=== PATIENT | female | born 2000 | race Caucasian/White ===

== ENCOUNTER 2024-03-22 10:51 | Outpatient (AMB) | payer OTHER, SELFPAY ==
--- NOTE | 2024-03-22 10:56 | A.OFFPC_ITS ---
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 Intake Note: new patient to establish care Allergies No Known Allergies Allergy (Verified 03/22/24 11:02) Medication List - Last Reconciled 03/22/24 by CARLOS GardnerP- escitalopram oxalate (Lexapro) 10 mg PO DAILY escitalopram oxalate (Lexapro) 5 mg PO DAILY Tobacco use date assessed: 03/22/24 Dental Screening Dental Screen Date: 03/22/24 Did you have a dental visit in the last 12 months?: Yes Did you have a dental problem in the last 6 months where you did not have access to dental care?: No Was dental information given to patient?: Patient has dentist HPI HPI Comments History of Present Illness Details 23 y/o F with Vegan, Generalized anxiety disorder, MDD, seasonal allergies, obesity Social: works as [employer], living home w/ Mom Surgical hx: wisdom teeth extraction Family hx: Dad substance abuse, copd, emphyshema; Mom alive and well. Siblings 2 brothers, 1 sister alive and well. All grandparents . Maternal Grandmother CAD, Grandfather dementia , Paternal Grandfather Alzehimers Health Maintenance: Tdap 06/03/22 , will get flu shot at pharmacy Pap UTD [facility] Dermatology cleared hr assistant unsure of provider - appt 04/2024 Psychiatrist & counselor Here today to est care & for a CPE peds records reviewed overall feels well worried about wt; + lifestyle changes w/o decrease in wt. Cont to eat vegan diet. Mood is ok on current meds; managed by outside provider Optho - no corrective lenses; no need for eye exam Skin - acne cleared, no longer ff'd by Derm Plan: Check routine screening labs today. If normal, advised to cont to make healthy lifestyle choices. Do not focus on scale. + self talk Cont care w/ care team Recommend MVI with B12 RTO 1 year CPE, sooner PRN Labs from today show a normal CBC, normal electrolytes, normal renal function, A1c 5.0%, AST 36, ALT 38, lipid profile within normal limits, B12 low end of normal at 205, TSH normal, urine microalbumin creatinine ratio normal [facility] Medical History (Updated 03/22/24 @ 11:[address] [facility] [place]) Anxiety and depression Surgical History (Updated 03/22/24 @ 11:08 by Zoë Wang MA) No pertinent past surgical history Family History (Updated 03/22/24 @ 11:09 by Zoë Wang MA) Maternal Grandfather Mental health disorder Psychiatric disorder Father Substance abuse Maternal Grandmother Cardiovascular disease Paternal Grandfather Alcoholism Social History (Updated 03/22/24 @ 11:04 by Zoë Wang MA) Household Members: Family Housing: House Are you a primary respiratory care technician to a significant other at home: No Do you presently have visiting nurse or other home services: No Alcohol intake: current Alcohol intake frequency: a few times a month Patient Tobacco Use Status: Never used Tobacco e-Cigarette/Vaping Use: Never Used Substance Use Type: Marijuana service: No Current occupational status: employed Current occupation: Cognitive needs: No Hearing needs: No Vision needs: No Questionnaire PHQ-9 Over the last 2 weeks, how often have you been bothered by any of the following problems? 1. Little interest or pleasure in doing things: not at all 2. Feeling down, depressed, or hopeless: not at all 3. Trouble falling or staying asleep, or sleeping too much: several days 4. Feeling tired or having little energy: not at all 5. Poor appetite or overeating: not at all 6. Feeling bad about yourself - or that you are a failure or have let yourself or your family down: several days 7. Trouble concentrating on things, such as reading the newspaper or watching television: not at all 8. Moving or speaking so slowly that other people could have noticed. Or the opposite - being so fidgety or restless that you have been moving around a lot more than usual: not at all 9. Thoughts that you would be better off or of hurting yourself in some way: not at all Total score: 2 Depression Screening Interpretation: Negative Depression Screening Done: Yes 37625 - PHQ-9 Billing: Yes Source: Developed by Drs. Boo Cruz, Mayra BTyron Hollingsworth and colleagues, with an educational wang from [employer]. Thrive Questionnaire Date Thrive assessed: 03/22/24 I am a: Patient What is your living situation today?: I have a steady place to live Within the past 12 months, did the food you bought not last and you didn't have the money to get more?: Never true Within the past 12 months, did you worry whether your food would run out before you got money to buy more?: Never true Do you have trouble paying for medicines?: No Do you have trouble getting transportation to medical appointments?: No Do you have trouble paying your heating and electricity bill?: No Do you have trouble taking care of your child, family member or friend?: No Do you have trouble with day-to-day activities such as bathing, preparing meals, shopping, managing finances, etc.?: No Are you currently unemployed and looking for a job?: No Are you interested in more education?: No Please select the resources that you would like help with: None Currently or been in a relationship where the following occur: No concerns reported THRIVE Score: 0 AUDIT C Alcohol Use Questionnaire (AUDIT-C) 1. How often do you have a drink containing alcohol?: 2-4 times a month 2. How many drinks containing alcohol do you have on a typical day when you are drinking?: 1 or 2 3. How often do you have six or more drinks on one occasion?: Less than monthly Total Score: 3 Score Reviewed/Action Taken: Yes WANDA-7 AMB Questionnaire WANDA-7 Date WANDA - 7 assessed: 03/22/24 Feeling nervous, anxious, or on edge: 3 = Nearly every day Not being able to stop or control worryin = More than half the days Worrying too much about different things: 2 = More than half the days Trouble relaxin = More than half the days Being so restless that it is hard to sit still: 2 = More than half the days Becoming easily annoyed or irritable: 0 = Not at all Feeling afraid as if something awful might happen: 3 = Nearly every day Total WANDA-7 score (0-4 normal; 5-9 mild; 10-14 moderate; 15-21 severe): 14 Source: Developed by Drs. Boo Cruz, MayraTyron Larson and colleagues, with an educational wang from [employer]. WANDA-7 Assessment Billing WANDA-7 Assessment Tool: WANDA-7 Assessment 56992 Review of Systems Const Details: Constitutional: Denies fever. Skin: Denies rash. Eye: Denies eye pain. ENMT: Denies sore throat and nasal congestion. Respiratory: Denies shortness of breath and cough. Gastrointestinal: Denies nausea, vomiting or abdominal pain. Cardiovascular: Denies chest pain and syncope. Genitourinary: Denies dysuria. Musculoskeletal: Denies back pain and extremity pain. Neurologic: Denies headaches, confusion, and weakness. Psychiatric: Denies suicidal thoughts and substance abuse. Allergy/ Immunologic: Denies impaired immunity. Physical exam (Primary Care) Vital Signs: Last Vital Signs Pulse 82 03/22/24 11:00 Resp 13 03/22/24 11:00 BP 124/70 03/22/24 11:00 Pulse Ox 97 03/22/24 11:00 Oxygen Delivery Method Room Air 03/22/24 11:00 BMI result Body Mass Index 34.1 BMI Assessment/Plan discussion: High BMI High, discussed plan: lifestyle Tobacco/Smoking Status: Tobacco use Status Tobacco use date assessed 03/22/24 03/22/24 11:05 Patient Tobacco Use Status Never used Tobacco 03/22/24 11:05 e-Cigarette/Vaping Use Never Used 03/22/24 11:05 PHQ-9: PHQ-9 Score PHQ-9: Total score 2 03/22/24 11:23 Depression Screening Interpretation: Negative Thrive Assessment: Date of Thrive Assessment Date Thrive assessed 03/22/24 03/22/24 10:59 Currently or been in a relationship where the following occur: No concerns reported Const Other: General: Well developed, well nourished, in no acute distress. Appears stated age. Head: Normocephalic, atraumatic. Eyes: Pupils are equal, round and reactive to light and accommodation. Conjunctivae are clear. Vision grossly normal. Ears: TMs clear AU, EACS WNL Nose: Patent, without discharge. Mouth: There are no ulcers or lesions noted. No inflammation, no post nasal drip, no plaques nor exudates. Neck: Supple, no adenopathy or thyromegaly. Lungs: Clear to auscultation bilaterally. No rales, rhonchi or wheeze noted. Good air flow in all oliver. Heart: Regular rate and rhythm. No murmurs, click, rubs or gallops are noted. Abdomen: Bowel sounds present in all quadrants. The abdomen is soft, nontender, with no masses or organomegaly noted. No hernias are noted. Musculoskeletal: Joints are nontender, without swelling, redness, or effusions. Range of motion is observed to be normal. Pulses: Peripheral pulses are equal and palpable bilaterally. Extremities: No clubbing, cyanosis nor edema is noted. Neurologic: Gait and station normal. Cranial Nerves 2-12 intact. Motor strength grossly symmetrical and intact. No sensory loss. Balance normal. Skin: No rashes, ulcers, or lesions noted. Turgor is good. Skin color is good. Hair and nails are without abnormalities. Psych: Normal eye contact, affect and mood appropriate, and normal interactions. Patient is alert and appropriate to context. Coding Level of Care Code New Pt Prev Care 18-39yr(84019 Diagnoses Encounter for general adult medical examination without abnormal findings Z00.00 Vegan diet Z78.9 WANDA (generalized anxiety disorder) F41.1 BMI 34.0-34.9,adult Z68.34 Obesity, Class I, BMI 30-34.9 E66.811 Seasonal allergies J30.2 Mild episode of recurrent major depressive disorder F33.0 Major depression episode severity: mild Laboratory exam ordered as part of routine general medical examination Z00.00 Additional Codes WANDA-7 Assessment Billing - WANDA-7 Assessment Tool: WANDA-7 Assessment 06918 ([id number]) Assessment & Plan Assessment & Plan (1) Encounter for general adult medical examination without abnormal findings: Code(s): Z00.00 - Encounter for general adult medical examination without abnormal findings Plan: . (2) Vegan diet: Code(s): Z78.9 - Other specified health status Category: Medical Plan: . (3) WANDA (generalized anxiety disorder): Code(s): F41.1 - Generalized anxiety disorder Category: Medical Plan: . (4) BMI 34.0-34.9,adult: Code(s): Z68.34 - Body mass index [BMI] 34.0-34.9, adult Category: Medical Plan: . (5) Obesity, Class I, BMI 30-34.9: Code(s): E66.811 - Obesity, class 1 Category: Medical Plan: . (6) Seasonal allergies: Code(s): J30.2 - Other seasonal allergic rhinitis Category: Medical Plan: . (7) MDD (major depressive disorder), recurrent episode: Code(s): F33.9 - Major depressive disorder, recurrent, unspecified Category: Medical Qualifiers: Major depression episode severity: mild Qualified Code(s): F33.0 - Major depressive disorder, recurrent, mild Plan: . (8) Laboratory exam ordered as part of routine general medical examination: Code(s): Z00.00 - Encounter for general adult medical examination without abnormal findings Category: Medical Plan: . Orders: Orders Comprehensive Met. Panel Today Z00.00 - Encounter for general adult medical examination without abnormal findings, Z78.9 - Other specified health status Microalbumin, Random (w Creat) Today Z00.00 - Encounter for general adult medical examination without abnormal findings, Z78.9 - Other specified health status Vitamin B12 and Folate Today Z00.00 - Encounter for general adult medical examination without abnormal findings, Z78.9 - Other specified health status Lipid Panel Today Z00.00 - Encounter for general adult medical examination wit hout abnormal findings, Z78.9 - Other specified health status Hemoglobin A1c Today Z00.00 - Encounter for general adult medical examination without abnormal findings, Z78.9 - Other specified health status TSH reflex Free T4 Today Z00.00 - Encounter for general adult medical examination without abnormal findings, Z78.9 - Other specified health status Complete Blood Count no Diff Today Z00.00 - Encounter for general adult medical examination without abnormal findings, Z78.9 - Other specified health status Patient Instructions: Walk-In Care (Urgent Care): We [facility] Walk-in for urgent medical issues such as: ? Seasonal Allergies ? Insect Bites ? Cough ? Diarrhea ? Acute Asthma Attacks ? Back, Knee or Joint Pain ? Ear Infection ? Fever without a Rash ? Headaches ? Nausea ? [place] [facility], Rash or Skin Irritation ? Sore Throat ? Sports Physicals ? Vomiting Most insurances are accepted. Patients do not need to be part of the [facility] to seek care at the walk-in clinic. Locations [facility] [place] [address] [place] [address] ? [phone] [facility] Walk-In Care in [place] provides services to ages 18 and over. Open Wednesday-Wednesday: 8 a.m. to 5 p.m. and Wednesday: 9 a.m. to 3 p.m.* *Hours may vary due to staffing availability. To confirm Walk-In Care hours in [place], please call [phone]. [address] [place] [address] ? [phone] [facility] Walk-In Care in [place] provides services to ages 12 and over. Open Wednesday-Wednesday: 8 a.m. to 5 p.m. Hours may vary due to staffing availability. To confirm Walk-In Care hours in [place], please call [phone]. LABORATORY SERVICES: [facility] Lab ? Primary Location [address] [place] [address] Wednesday through Wednesday 6:00 AM ? 5:00 PM Wednesday 7:00 AM ? 11:00 AM* [phone] The [facility] Lab is centrally located near the front entrance of the [facility] for easy outpatient access. Convenient parking is provided for outpatients. *Hours may vary due to staffing availability. To confirm Laboratory hours for any location, please call [phone]. Offsite Location For your convenience, we offer offsite laboratory draw stations at the following locations: [address] [place] [address] ? [address], [address] Wednesday through Wednesday 7:30 AM ? 1:00 PM* [phone] *Hours may vary due to staffing availability. To confirm Laboratory hours for any location, please call [phone]. [place] ? [address] Wednesday through Wednesday 6:00 AM ? 3:30 PM* Wednesday 6:30 AM ? 3 PM* [phone] *Hours may vary due to staffing availability. To confirm Laboratory hours for any location, please call [phone] [place] [address] Wednesday through Wednesday 7:30 AM ? 4:00 PM* [phone] *Hours may vary due to staffing availability. To confirm Laboratory hours for any location, please call [phone] [place] [address] Wednesday through 9:00 AM ? 4:00 PM* *Hours may vary due to staffing availability. To confirm Laboratory hours for any location, please call [phone]. Appointments are not necessary. Walk-ins are welcome. Like all the departments throughout the [facility], our Lab undergoes anisha quent reviews to ensure the quality and accuracy of test results, and our staff takes special pride in its status as a nationally accredited facility. Patient Portal: ONE PATIENT. ONE RECORD. BETTER CARE. [facility] has a fully integrated, cutting- edge mobile electronic health information system that has revolutionized the way we care for our patients and manage our organization. This system improves communication and coordination enabling us to provide safe, higher-quality care, and an overall positive experience for staff and patients. Our first priority, as always, is to deliver the highest quality care possible. The system is running in the background supporting that priority. This portal is for all [facility] services and practices. If you are experiencing any technical difficulties with enrolling or logging into the Patient Portal please complete the [facility] Patient Portal Technical Support Form. [facility] now offers a new secure on-line interactive tool for patients to review their health information ? Patient Portal. This interactive web portal will enable patients and their families to take an active role in their care by providing easy, secure access to their health information via the internet. The Patient Portal provides patients with instant access to their health information, including laboratory results, medications, allergies, demographic information, visit history, and more. In addition to managing their own care, parents and health care proxies with authorized consent will appreciate the ability to access the records of those individuals for whom they provide care. Please note: if you wish to gain access (Proxy) to another patient?s portal, you will be required to come to the Medical Records Department in person at [facility]. Both the patient giving proxy access and the proxy will need to provide photo identification and complete the appropriate authorization. The Patient Portal also allows track their appointments online. The [facility] Patient Portal also saves patients time by allowing them to submit updates to their demographic and contact information prior to their visits. Portal email notifications will also alert patients to any new activity on their portal, such as test results and new appointments. In order to initially enroll in the [facility] Patient Portal, you will need to enter some required information including the following: ? your [facility] Medical Record number ? your personal home email address ? name ? date of Please note: In order to enroll in the [facility] Patient Portal, we need to have your email address on file in your electronic medical record. The email address needs to be specific for one person (yourself) in order for your Portal enrollment to be successful. You can update your email address in person with our Registration staff when you are registering for a hospital visit. Otherwise, you will need to come to the Health Information Management (Medical Records) Department at [facility]. We are open from Wednesday ? Wednesday from 7:30 a.m. ? 4:30 p.m. You will be required to present a photo id. Once you have successfully enrolled in the Patient Portal, you will receive a one-time user id and password for the Portal, sent to your email address. This will allow you to log into the Patient Portal within 99 hrs and reset your own logon id and password, and define personal security questions. Once your permanent login and password have been set, you can log into the [facility] Patient Portal at any time via the blue button above or from the Portal Logon button on any page of the [facility] website. [facility] encourage all of our patients to enroll in Patient Portal as it presents a valuable opportunity for patients and their families to actively participate in their care and stay healthy Welcome to [facility]. We look forward to working with you. Health screenings for women You should visit your health care provider from time to time, even if you are healthy. The purpose of these visits is to: Screen for medical issues Assess your risk for future medical problems Encourage a healthy lifestyle Update vaccinations and other preventive care services Help you get to know your provider in case of an illness Information Even if you feel fine, you should still see your provider for regular checkups. These visits can help you avoid problems in the future. For example, the only way to find out if you have high blood pressure is to have it checked regularly. High blood sugar and high cholesterol levels also may not have any symptoms in the early stages. A simple blood test can check for these conditions. There are specific times when you should see your provider or receive specific health screenings. The [place] Preventive Services Task Force publishes a list of recommended screenings. Below are screening guidelines for women ages 18 to 39. BLOOD PRESSURE SCREENING Your blood pressure should be checked at least once every 3 to 5 years if: Your blood pressure is in the normal range (top number less than 120 mm Hg and bottom number less than 80 mm Hg) You don't have risk factors for high blood pressure Ask your provider if you need your blood pressure checked more often if: The top number is 120 to 129 mm Hg or the bottom number is 70 to 79 mm Hg You have diabetes, heart disease, kidney problems, are overweight, or have certain other health conditions You have a first-degree relative with high blood pressure You are Black You had high blood pressure during a If the top number is 130 mm Hg or greater or the bottom number is 80 mm Hg or greater, this is considered stage 1 hypertension. Schedule an appointment with your provider to learn how you can reduce your blood pressure. Watch for blood pressure screenings in your area. Ask your provider if you can stop in to have your blood pressure checked. BREAST CANCER SCREENING Experts do not agree about the benefits of breast self-exams in finding breast cancer or saving lives. Talk to your provider about what is best for you. A screening mammogram is not recommended for most women under age 40. Your provider may discuss and recommend mammograms, MRI scans, or ultrasounds if you have an increased risk for breast cancer, such as: A mother or sister who had breast cancer at a young age (most often starting screening earlier than the age the close relative was diagnosed) You carry a high-risk genetic marker CERVICAL CANCER SCREENING Cervical cancer screening should start at age 21 years unless your provider advises otherwise. After the first test: Women ages 21 through 29 should have a Pap test every 3 years. Exoprts do not agree on whether HPV testing is recommended for this age group. Women ages 30 through 65 should be screened with either a Pap test every 3 years or the HPV test every 5 years or both tests every 5 years (called cotesting ). Women who have been treated for precancer (cervical dysplasia) should continue to have Pap tests for 20 years after treatment or until age 65, whichever is longer. If you have had your uterus and cervix removed (total hysterectomy), and you have not been diagnosed with cervical cancer or precancer (high grade cervical neoplasia), you do not need cervical cancer screening. CHOLESTEROL SCREENING Cholesterol screening should begin at: Age 45 for women with no known risk factors for coronary heart disease Age 20 for women with known risk factors for coronary heart disease Repeat cholesterol screening should take place: Every 5 years for women with normal cholesterol levels More often if changes occur in lifestyle (including weight gain and diet) More often if you have diabetes, heart disease, kidney problems, or certain other conditions DIABETES SCREENING You should be screened for diabetes starting at age 35 and then repeated every 3 years if you have no risk factors for diabetes. Screening may need to start earlier and be repeated more often if you have other risk factors for diabetes, such as: You have a first degree relative with diabetes. You are overweight or have obesity. You have high blood pressure, prediabetes, or a history of heart disease. Screening for diabetes should be done if you are planning to become and you are overweight and have other risk factors such as high blood pressure. DENTAL EXAM Go to the dentist once or twice every year for an exam and cleaning. Your dentist will evaluate if you need more frequent visits. EYE EXAM Have an eye exam every 5 to 10 years before age 40. If you have vision problems, have an eye exam every 2 years or more often if recommended by your provider. You should have an eye exam that includes an examination of your retina (back of your eye) at least every year if you have diabetes. IMMUNIZATIONS Commonly needed vaccines include: Flu shot: get one every year. COVID-19 vaccine: ask your provider what is best for you. Tetanus-diphtheria and acellular pertussis (Tdap) vaccine: have one at or after age 19 as one of your tetanus-diphtheria vaccines if you did not receive it as an adolescent. Tetanus-diphtheria: have a booster (or Tdap) every 10 years. Varicella vaccine: receive 2 doses if you never had chickenpox or the varicella vaccine. Hepatitis B vaccine: receive 2, 3, or 4 doses, depending on your exact circumstances. Measles, mumps, and rubella (MMR) vaccine: receive 1 to 2 doses if you are not already immune to MMR. Your provider can tell you if you are immune. Ask your provider about the human papillomavirus (HPV) vaccine if: You have not received the HPV vaccine in the past You have not completed the full vaccine series (you should catch up on this shot) Ask your provider if you should receive other immunizations if you have certain health problems that increase your risk for some diseases such as pneumonia. INFECTIOUS DISEASE SCREENING Women who are sexually active should be screened for chlamydia and gonorrhea up until age 25. Women 25 years and older should be screened for chlamydia and gonorrhea if at high risk. Screening for hepatitis C: All adults ages 18 to 79 should get a one-time test for hepatitis C. people should be screened at every . Screening for human immunodeficiency virus (HIV): All people ages 15 to 65 should get a one-time test for HIV. Depending on your lifestyle and medical history, you may also need to be screened for infections such as syphilis and HIV, as well as other infections. PHYSICAL EXAM All adults should visit their provider from time to time, even if they are healthy. The purpose of these visits is to: Screen for disease Assess your risk of future medical problems Encourage a healthy lifestyle Update your vaccinations and other preventive care services Maintain a relationship with a provider in case of an illness Your height, weight, and BMI should be checked at every exam. During your exam, your provider may ask you about: Depression and anxiety Diet and exercise Alcohol and tobacco use Safety issues, such as using seat belts, smoke detectors, and intimate partner violence Your medicines and risk for interactions SKIN SELF-EXAM Your provider may check your skin for signs of skin cancer, especially if you're at high risk, such as if you: Have had skin cancer before Have close relatives with skin cancer Have a weakened immune system OTHER SCREENING Talk with your provider about colon cancer screening if you have a strong family history of colon cancer or polyps, or if you have had inflammatory bowel disease or polyps yourself. Routine bone density screening of women under 40 is not recommended.
[2024-03-22 11:00] VITALS: BP 124/70; PULSE 82; RESP 13; O2SAT 97; BMI 34.1
== END 2024-03-22 11:34 | disposition home or self-care (01) ==
PROVIDERS: PCP Nurse Practitioner Family; Visit Provider Nurse Practitioner Family
DX: Z00.00 Encounter for general adult medical examination without abnormal findings (principal); Z78.9 Other specified health status; Z68.34 Body mass index [BMI] 34.0-34.9, adult; F33.0 Major depressive disorder, recurrent, mild; E66.811 Obesity, class 1; F41.1 Generalized anxiety disorder; J30.2 Other seasonal allergic rhinitis

== ENCOUNTER → 2024-03-22 10:51 | Outpatient (BNVA) | payer OTHER, SELFPAY | PROVIDERS: PCP Nurse Practitioner Family; Visit Provider Nurse Practitioner Family | DX: Z00.00 Encounter for general adult medical examination without abnormal findings (principal); F41.1 Generalized anxiety disorder; E66.811 Obesity, class 1; Z68.34 Body mass index [BMI] 34.0-34.9, adult; J30.2 Other seasonal allergic rhinitis; F33.0 Major depressive disorder, recurrent, mild; Z78.9 Other specified health status | CPT/HCPCS: 96127 ==

== ENCOUNTER 2024-03-22 11:44 | Outpatient (REF) | payer OTHER, SELFPAY ==
[2024-03-22 14:32] LABS: Hematocrit 41.6 % (37.0-47.0); Hemoglobin 14.2 g/dl (12.0-16.0); Mean Corpuscular HGB Conc 34.1 g/dl (31.0-35.0); Mean Corpuscular Volume 93.7 fL (80.0-98.0); Mean Platelet Volume 10.7 fL (9.4-12.3); Platelet Count 305 X10*3/uL (160-400); Red Blood Count 4.44 X10*6/uL (4.20-5.50); Red Cell Distribution Width 12.2 % (11.0-16.0); White Blood Count 6.6 X10*3/uL (4.8-10.8)
[2024-03-22 14:41] LABS: Estimated Average Glucose 97 mg/dL; Hemoglobin A1C 103.5315 umol/L; Total Hemoglobin (HGBA1C) 3373.4809 umol/L
[2024-03-22 14:56] LABS: Alanine Aminotransferase 38 U/L (0-31); Albumin Level 4.3 g/dL (3.5-5.0); Alkaline Phosphatase 58 U/L (39-117); Anion Gap 11 (12-20); Aspartate Amino Transferase 36 U/L (5-31); Bilirubin Total 0.6 mg/dL (0.0-1.0); Blood Urea Nitrogen 6 mg/dL (9-16); Calcium 9.9 mg/dL (8.4-10.2); Carbon Dioxide 26 mmol/L (22-29); Chloride 108 mmol/L (96-108); Cholesterol 164 mg/dL (<200); Estimated Glomerular Filt Rate > 60; Glucose Random 94 mg/dL (60-115); HDL Cholesterol 67 mg/dL (>40); LDL Cholesterol Calculated 62 mg/dL (<100); Sodium 141 mmol/L (135-145); Total Protein 7.5 g/dL (6.5-8.0); Triglycerides 175 mg/dL (<150)
[2024-03-22 15:06] LABS: Creatinine Urine 121.17 mg/dL; Microalbumin Urine < 5.0 mg/L
[2024-03-22 15:14] LABS: TSH reflex Free T4 1.05 uIU/mL (0.32-4.0)
[2024-03-22 15:21] LABS: Folate 13.9 ng/mL (> or = 4.0); Vitamin B12 205 pg/mL (200-900)
== END 2024-03-22 11:45 | disposition home or self-care (01) ==
LOC: HO.WFDLDS 11:44
PROVIDERS: Visit Provider Nurse Practitioner Family
DX: Z00.00 Encounter for general adult medical examination without abnormal findings (principal); Z13.1 Encounter for screening for diabetes mellitus; Z13.6 Encounter for screening for cardiovascular disorders; Z78.9 Other specified health status
CPT/HCPCS: 36415; 80053; 80061; 82043; 82570; 82607; 82746; 83036; 84443; 85027

== ENCOUNTER 2025-05-04 09:50 | Outpatient (AMB) | payer OTHER, SELFPAY ==
--- NOTE | 2025-05-04 09:52 | A.OFFPC_ITS ---
Vital Signs 05/04/25 10:09 Height 5 ft 4 in Weight 195 lb BMI 33.5 BP 138/78 Blood Pressure Location Lt brachial Position Sitting Respiration 12 Pulse 81 Pulse Source Pulse Oximeter Temp 97.3 F Temp Source Oral Pulse Oximetry (%) 98 Oxygen Delivery Method Room Air Intake Visit Reasons: 1 year CPE Intake Note: CPE Senior Loss Control Specialist Required: No Allergies No Known Allergies Allergy (Verified 05/04/25 10:27) Medication List - Last Reconciled 05/04/25 by SYBIL Gardner- escitalopram oxalate (Lexapro) 20 mg PO DAILY Tobacco use date assessed: 05/04/25 Dental Screening Dental Screen Date: 05/04/25 Did you have a dental visit in the last 12 months?: Yes Did you have a dental problem in the last 6 months where you did not have access to dental care?: No Was dental information given to patient?: Patient has dentist HPI HPI Comments History of Present Illness Details 24 y/o F with Vegan, Generalized anxiety disorder, MDD, seasonal allergies, obesity Social: works as [employer], living home w/ Mom Surgical hx: wisdom teeth extraction Family hx: Dad substance abuse, copd, emphyshema; Mom alive and well. Siblings 2 brothers, 1 sister alive and well. All grandparents . Maternal Grandmother CAD, Grandfather dementia , Paternal Grandfather Alzheimer Health Maintenance: Tdap 06/03/22 Pap UTD WNL Flu 05/01/25 Specialists Dermatology cleared nurses director unsure of provider - appt 04/2024, next appt 05/2025 Psychiatrist & counselor History of Present Illness The patient is a 24-year-old female presenting for a complete physical exam. Generalized Anxiety Disorder and Depression: - The patient has a history of generaliz ed anxiety disorder and depression, for which she takes escitalopram 20 mg daily. - She reports a recent increase in anxie ty, including anxiety attacks, following her decision to quit her [employer] job due to disagreements with her employer. - She reports sadness and guilt over mic ving the children in her care. - Her dose of escitalopram was increased about two months ago, but she feels it has not been effective for her anxiety. - She denies any thoughts of self-harm. - She has an appointment with her psychi atrist next week to discuss changing her medication and also regularly sees a therapist. Obesity and Weight Management: - The patient has a history of obesity w ith a BMI of 33.5. - She expresses frustration with her elmer ght, feeling that she is not seeing changes despite regular exercise such as running and biking. - She acknowledges clinical weight loss and reports significant improvement in her physical stamina, now being able to run 5.5 miles, which she could not do before. - Lab work from last year showed no thyr oid disorders. - Admits hx of disordered eating Vegan Diet and Vitamin B12 Deficiency Risk: - The patient follows a vegan diet. - Lab work from one year ago revealed a vitamin B12 level at the low end of normal at 205, where the lower limit of normal is 200. - She takes a B12 supplement but reports forgetting to take it sometimes. History of Eating Disorder: - The patient reports a past history of eating disorders. - Due to this history, she expressed derek rehension about consulting a central sterile tech, fearing it might cause her to focus excessively on food and trigger past issues. Past Medical History - Generalized anxiety disorder, on escit alopram 20 mg - Depression - Obesity (BMI 33.5) - Seasonal allergies - History of eating disorder - Low-normal Vitamin B12 level one year ago Past Surgical History - History of tooth extraction prior to 2 023 Family History - No changes in family medical history r eported. - Mother has a similar body build but is not overweight. Social History - Employment: Recently quit a [employer] ob, which has caused her significant anxiety and sadness. - She works 20 hours a week at a second [employer] job. - Housing: Lives with her mother. - Diet: Follows a vegan diet. - Exercise: Engages in regular physical activity, including running several miles a week and biking. - She reports improved stamina, recently running 5.5 miles. - Substance Use: Reports smoking pot; de nies other illicit drug use. - Sexual History: Sexually active with radha gr, denies concerns for STDs, and is not currently using any control methods. - Safety: Reports always wearing a seatb elt. Health Maintenance - The patient received her influenza vac cine today. - Instructed the patient to sign up for the patient portal to facilitate communication and access to results. - Plan to see the patient back in one ye ar for her next annual exam, or sooner if needed. Review of Systems - Constitutional: Reports frustration wi th her weight. - Psychiatric: Reports increased anxiety with anxiety attacks and feeling sad. - She denies any thoughts of self-harm. - Eyes: Denies any problems, worries, or concerns. - Gastrointestinal: Reports pooping okay . - Genitourinary: Reports peeing okay. Physical Exam General: Well developed, well nourished, in no acute distress. Appears stated age. Head: Normocephalic, atraumatic. Eyes: Pupils are equal, round and reactive to light and accommodation. Conjunctivae are clear. Scleras nonicteric bilat. Vision grossly normal. Ears: TMs clear AU, EACS WNL Nose: Patent, without discharge. Neck: No carotid bruit bilat. Supple, no adenopathy or thyromegaly. Breast: Edu on SBE Lungs: Clear to auscultation bilaterally. No rales, rhonchi or wheeze noted. Good air flow in all oliver. Heart: Regular rate and rhythm. No murmurs, click, rubs or gallops are noted. Abdomen: Bowel sounds present in all quadrants. The abdomen is soft, nontender, with no masses or organomegaly noted. No hernias are noted. : Deferred. Reviewed recommendations for routine [facility] Pulses: Peripheral pulses are equal and palpable bilaterally. Extremities: No clubbing, cyanosis nor edema is noted. Neurologic: Gait and station normal. Cranial Nerves 2-12 intact. Motor strength grossly symmetrical and intact. No sensory loss. Balance normal. Skin: No rashes, ulcers, or lesions noted. Turgor is good. Skin color is good. Hair and nails are without abnormalities. Psych: Normal eye contact, affect and mood appropriate, and normal interactions. Patient is alert and appropriate to context. Reports feeling anxious and sad due to recent job change and connection with children at previous job. Currently taking Lexapro 20 mg for anxiety and depression, with plans to change medication. No thoughts of self-harm. Results - PHQ-9: Score of 3, indicating mild dep ression. - Anxiety Screen: Score was noted to be high. - Labs from one year ago: Vitamin B12 wa s 205 (lower limit of normal is 200). - Other labs at that time were normal. Medical Decision Making The patient is a 24-year-old female who presented for a complete physical exam. Her primary concerns are worsening anxiety and frustration with weight management. The patient's anxiety, characterized by recent attacks, appears to be exacerbated by recent psychosocial stressors related to her employment. Despite an increased dose, her current regimen of escitalopram 20 mg is not providing sufficient symptom control. Her upcoming appointment with her psychiatrist is an appropriate step for medication reevaluation, and her engagement with a therapist is commendable. Regarding her weight, although she is frustrated by the number on the scale, she reports objective improvements in her cardiovascular fitness and stamina, which are important health indicators. Her vegan diet places her at risk for B12 deficiency; her level one year ago was borderline low, and she is inconsistent with supplementation. To assess for potential anemia, which can impact energy and metabolism, a repeat CBC and B12 level have been ordered. Given her history of an eating disorder, a referral will be made to a specialized eating disorder central sterile tech, as this will provide tailored support while minimizing the risk of triggering past behaviors. Health maintenance, including vaccinations, is largely up to date. Plan 1. Generalized Anxiety Disorder And Depr ession - The patient's anxiety has worsened rec ently, with associated panic attacks, despite being on escitalopram 20 mg. - She has an appointment with her psychi atrist next week to re-evaluate her medication regimen. - She will continue to engage in therapy . - Continue current medication until her psychiatry appointment. 2. Obesity And Health Maintenance - The patient expressed frustration with her weight despite regular exercise. - Acknowledged her physical improvements , such as increased running endurance, as a positive health outcome. - Due to a history of an eating disorder , recommended a consultation with a central sterile tech specializing in eating disorders to provide support without using triggering language. - Instructed the patient to contact her insurance to find a covered specialist and to provide that information via the patient portal for a formal referral. 3. Vitamin B12 Deficiency Risk - Due to her vegan diet and a borderline low B12 level a year ago, there is a risk of deficiency and subsequent anemia. - Ordered a CBC and Vitamin B12 level to be drawn today. - Results will be sent to the patient vi a the patient portal. Patient Instructions - Please go to the lab today to get your blood drawn. I have ordered a CBC (complete blood count) and a Vitamin B12 level. - You will receive an email to sign up f or our patient portal. Please click the link in the email and set up your account today, as the link will in 24 hours. The portal is where I will send your lab results and where you can send me messages. - Continue taking your medication as pre scribed and keep your appointment with your psychiatrist next week to discuss your anxiety. - Please contact your insurance company to ask for a list of covered film maker who specialize in eating disorders. Once you have that information, send it to me through the patient portal, and I will place a referral. - You received your flu shot today. - We will see you back in one year for y our next annual physical. If anything changes or you need help before then, please message me on the portal. Consent The patient verbally consented to have her blood drawn for lab testing after the risks, benefits, and alternatives were discussed. Patient was informed and verbally consented to the use of an ambient scribe for clinic note documentation during this visit. [facility] Medical History Anxiety and depression Surgical History No pertinent past surgical history Family History Maternal Grandfather Mental health disorder Psychiatric disorder Father Substance abuse Maternal Grandmother Cardiovascular disease Paternal Grandfather Alcoholism Social History Household Members: Family Both parents involved: Yes Caregiver staying overnight: No Housing: House Are you a primary post acute care nurse to a significant other at home: No Do you presently have visiting nurse or other home services: No 75 years or older and lives alone: No Alcohol intake: current Alcohol intake frequency: a few times a month Patient Tobacco Use Status: Never used Tobacco e-Cigarette/Vaping Use: Never Used Second Hand Smoke Exposure: No Substance Use Type: Marijuana service: No Current occupational status: employed Current occupation: Cognitive needs: No Hearing needs: No Vision needs: No Questionnaire PHQ-9 Over the last 2 weeks, how often have you been bothered by any of the following problems? 1. Little interest or pleasure in doing things: several days 2. Feeling down, depressed, or hopeless: several days 3. Trouble falling or staying asleep, or sleeping too much: not at all 4. Feeling tired or having little energy: not at all 5. Poor appetite or overeating: not at all 6. Feeling bad about yourself - or that you are a failure or have let yourself or your family down: several days 7. Trouble concentrating on things, such as reading the newspaper or watching television: not at all 8. Moving or speaking so slowly that other people could have noticed. Or the opposite - being so fidgety or restless that you have been moving around a lot more than usual: not at all 9. Thoughts that you would be better off or of hurting yourself in some way: not at all Total score: 3 Depression Screening Interpretation: Negative Depression Screening Done: Yes 47910 - PHQ-9 Billing: Yes Source: Developed by Drs. Boo Cruz, Mayra Red, Tyron Myrick and colleagues, with an educational wang from [employer]. Thrive Questionnaire Date Thrive assessed: 05/04/25 I am a: Patient What is your living situation today?: I have a steady place to live Within the past 12 months, did the food you bought not last and you didn't have the money to get more?: Never true Within the past 12 months, did you worry whether your food would run out before you got money to buy more?: Never true Do you have trouble paying for medicines?: No Do you have trouble getting transportation to medical appointments?: No Do you have trouble paying your heating and electricity bill?: No Do you have trouble taking care of your child, family member or friend?: No Do you have trouble with day-to-day activities such as bathing, preparing meals, shopping, managing finances, etc.?: No Are you currently unemployed and looking for a job?: No Are you interested in more education?: No Please select the resources that you would like help with: None Currently or been in a relationship where the following occur: No concerns reported THRIVE Score: 0 AUDIT C Alcohol Use Questionnaire (AUDIT-C) 1. How often do you have a drink containing alcohol?: 2-4 times a month 2. How many drinks containing alcohol do you have on a typical day when you are drinking?: 3 or 4 3. How often do you have six or more drinks on one occasion?: Less than monthly Total Score: 4 Score Reviewed/Action Taken: Yes WANDA-7 AMB Questionnaire WANDA-7 Date WANDA - 7 assessed: 05/04/25 Feeling nervous, anxious, or on edge: 1 = Several days Not being able to stop or control worryin = Several days Worrying too much about different things: 2 = More than half the days Trouble relaxin = Several days Being so restless that it is hard to sit still: 0 = Not at all Becoming easily annoyed or irritable: 1 = Several days Feeling afraid as if something awful might happen: 0 = Not at all Total WANDA-7 score (0-4 normal; 5-9 mild; 10-14 moderate; 15-21 severe): 6 Source: Developed by Drs. Boo Cruz, Mayra Red, Tyron Myrick and colleagues, with an educational wang from [employer]. WANDA-7 Assessment Billing WANDA-7 Assessment Tool: WANDA-7 Assessment 86599 Physical exam (Primary Care) Vital Signs: Last Vital Signs Temp 97.3 F 05/04/25 10:09 Pulse 81 05/04/25 10:09 Resp 12 05/04/25 10:09 BP 138/78 05/04/25 10:09 Pulse Ox 98 05/04/25 10:09 Oxygen Delivery Method Room Air 05/04/25 10:09 BMI result Body Mass Index 33.5 Tobacco/Smoking Status: Tobacco use Status Tobacco use date assessed 05/04/25 05/04/25 09:54 Patient Tobacco Use Status Never used Tobacco 05/04/25 09:54 e-Cigarette/Vaping Use Never Used 05/04/25 09:54 PHQ-9: PHQ-9 Score PHQ-9: Total score 3 05/04/25 10:14 Depression Screening Interpretation: Negative Thrive Assessment: Date of Thrive Assessment Date Thrive assessed 05/04/25 05/04/25 09:54 Currently or been in a relationship where the following occur: No concerns reported Office Procedures Flu Questionnaire Does the patient have a severe egg allergy?: No Does the patient have severe life threatening allergies?: No Does the patient have a fever or illness today?: No Has the patient ever had Guillain-Matlock Syndrome?: No Has the patient ever had any past reaction to a flu shot?: No Immunizations Fluarix 2826-1932 (PF) 45 mcg (15 mcg x 3)/0.5 mL IM syringe Performing Provider: LONNIE Gardner Performing Location: [facility] Administered by: Zoë Murillo MA on 05/04/25 10:15 Dose Route Admin Location Dispensed Lot Number Expiration Date [employer] 0.5 mL IM Right Deltoid 0.5 mL [id number] 11/27/25 [id number] Open Wager VIS Given Date VIS Provided VIS Publication Date 05/04/25 Single Vaccine 24 Eligibility Eligibility Date Funding Source Not [facility] Eligible 05/04/25 Private Coding Level of Care Code Est Pt Prev Care [id number]([id number]) Complex visit Add On G2211 Diagnoses Adult general medical exam Z00.00 WANDA (generalized anxiety disorder) F41.1 Mild episode of recurrent major depressive disorder F33.0 Major depression episode severity: mild Vegan diet Z78.9 Obesity, Class I, BMI 30-34.9 E66.811 Seasonal allergies J30.2 Influenza vaccination administered at current visit Z23 Low vitamin B12 level R79.89 Eating disorder, unspecified type F50.9 Eating disorder type: unspecified eating disorder Additional Codes WANDA-7 Assessment Billing - WANDA-7 Assessment Tool: WANDA-7 Assessment 53091 ([id number]) PHQ-9 - 22311 - PHQ-9 Billing: Yes ([id number]) Assessment & Plan Assessment & Plan (1) Adult general medical exam: Onset Date: ~05/04/25 Code(s): Z00.00 - Encounter for general adult medical examination without abnormal findings Category: Medical (2) WANDA (generalized anxiety disorder): Code(s): F41.1 - Generalized anxiety disorder Category: Medical (3) MDD (major depressive disorder), recurrent episode: Code(s): F33.9 - Major depressive disorder, recurrent, unspecified Category: Medical Qualifiers: Major depression episode severity: mild Qualified Code(s): F33.0 - Major depressive disorder, recurrent, mild (4) Vegan diet: Code(s): Z78.9 - Other specified health status Category: Social Hx (5) Obesity, Class I, BMI 30-34.9: Code(s): E66.811 - Obesity, class 1 Category: Medical (6) Seasonal allergies: Code(s): J30.2 - Other seasonal allergic rhinitis Category: Medical (7) Influenza vaccination administered at current visit: Onset Date: ~05/04/25 Code(s): Z23 - Encounter for immunization Category: Medical (8) Low vitamin B12 level: Code(s): R79.89 - Other specified abnormal findings of blood chemistry Category: Medical (9) Eating disorder, unspecified: Code(s): F50.9 - Eating disorder, unspecified Category: Medical Qualifiers: Eating disorder type: unspecified eating disorder Qualified Code(s): F50.9 - Eating disorder, unspecified Plan , Orders: Orders Comprehensive Met. Panel Today R79.89 - Other specified abnormal findings of blood chemistry, Z78.9 - Other specified health status Vitamin B12 and Folate Today R79.89 - Other specified abnormal findings of blood chemistry, Z78.9 - Other specified health status Influenza [id number] Immunization Today Z23 - Encounter for immunization Liver Panel Today R79.89 - Other specified abnormal findings of blood chemistry, Z78.9 - Other specified health status Patient Instructions: Health screenings for women You should visit your health care provider from time to time, even if you are healthy. The purpose of these visits is to: Screen for medical issues Assess your risk for future medical problems Encourage a healthy lifestyle Update vaccinations and other preventive care services Help you get to know your provider in case of an illness Information Even if you feel fine, you should still see your provider for regular checkups. These visits can help you avoid problems in the future. For example, the only way to find out if you have high blood pressure is to have it checked regularly. High blood sugar and high cholesterol levels also may not have any symptoms in the early stages. A simple blood test can check for these conditions. There are specific times when you should see your provider or receive specific health screenings. The [place] Preventive Services Task Force publishes a list of recommended screenings. Below are screening guidelines for women ages 18 to 39. BLOOD PRESSURE SCREENING Your blood pressure should be checked at least once every 3 to 5 years if: Your blood pressure is in the normal range (top number less than 120 mm Hg and bottom number less than 80 mm Hg) You don't have risk factors for high blood pressure Ask your provider if you need your blood pressure checked more often if: The top number is 120 to 129 mm Hg or the bottom number is 70 to 79 mm Hg You have diabetes, heart disease, kidney problems, are overweight, or have certain other health conditions You have a first-degree relative with high blood pressure You are Black You had high blood pressure during a If the top number is 130 mm Hg or greater or the bottom number is 80 mm Hg or greater, this is considered stage 1 hypertension. Schedule an appointment with your provider to learn how you can reduce your blood pressure. Watch for blood pressure screenings in your area. Ask your provider if you can stop in to have your blood pressure checked. BREAST CANCER SCREENING Experts do not agree about the benefits of breast self-exams in finding breast cancer or saving lives. Talk to your provider about what is best for you. A screening mammogram is not recommended for most women under age 40. Your provider may discuss and recommend mammograms, MRI scans, or ultrasounds if you have an increased risk for breast cancer, such as: A mother or sister who had breast cancer at a young age (most often starting screening earlier than the age the close relative was diagnosed) You carry a high-risk genetic marker CERVICAL CANCER SCREENING Cervical cancer screening should start at age 21 years unless your provider advises otherwise. After the first test: Women ages 21 through 29 should have a Pap test every 3 years. Exoprts do not agree on whether HPV testing is recommended for this age group. Women ages 30 through 65 should be screened with either a Pap test every 3 years or the HPV test every 5 years or both tests every 5 years (called cotesting ). Women who have been treated for precancer (cervical dysplasia) should continue to have Pap tests for 20 years after treatment or until age 65, whichever is longer. If you have had your uterus and cervix removed (total hysterectomy), and you have not been diagnosed with cervical cancer or precancer (high grade cervical neoplasia), you do not need cervical cancer screening. CHOLESTEROL SCREENING Cholesterol screening should begin at: Age 45 for women with no known risk factors for coronary heart disease Age 20 for women with known risk factors for coronary heart disease Repeat cholesterol screening should take place: Every 5 years for women with normal cholesterol levels More often if changes occur in lifestyle (including weight gain and diet) More often if you have diabetes, heart disease, kidney problems, or certain other conditions DIABETES SCREENING You should be screened for diabetes starting at age 35 and then repeated every 3 years if you have no risk factors for diabetes. Screening may need to start earlier and be repeated more often if you have other risk factors for diabetes, such as: You have a first degree relative with diabetes. You are overweight or have obesity. You have high blood pressure, prediabetes, or a history of heart disease. Screening for diabetes should be done if you are planning to become and you are overweight and have other risk factors such as high blood pressure. DENTAL EXAM Go to the dentist once or twice every year for an exam and cleaning. Your dentist will evaluate if you need more frequent visits. EYE EXAM Have an eye exam every 5 to 10 years before age 40. If you have vision problems, have an eye exam every 2 years or more often if recommended by your provider. You should have an eye exam that includes an examination of your retina (back of your eye) at least every year if you have diabetes. IMMUNIZATIONS Commonly needed vaccines include: Flu shot: get one every year. COVID-19 vaccine: ask your provider what is best for you. Tetanus-diphtheria and acellular pertussis (Tdap) vaccine: have one at or after age 19 as one of your tetanus-diphtheria vaccines if you did not receive it as an adolescent. Tetanus-diphtheria: have a booster (or Tdap) every 10 years. Varicella vaccine: receive 2 doses if you never had chickenpox or the varicella vaccine. Hepatitis B vaccine: receive 2, 3, or 4 doses, depending on your exact circumstances. Measles, mumps, and rubella (MMR) vaccine: receive 1 to 2 doses if you are not already immune to MMR. Your provider can tell you if you are immune. Ask your provider about the human papillomavirus (HPV) vaccine if: You have not received the HPV vaccine in the past You have not completed the full vaccine series (you should catch up on this shot) Ask your provider if you should receive other immunizations if you have certain health problems that increase your risk for some diseases such as pneumonia. INFECTIOUS DISEASE SCREENING Women who are sexually active should be screened for chlamydia and gonorrhea up until age 25. Women 25 years and older should be screened for chlamydia and gonorrhea if at high risk. Screening for hepatitis C: All adults ages 18 to 79 should get a one-time test for hepatitis C. people should be screened at every . Screening for human immunodeficiency virus (HIV): All people ages 15 to 65 should get a one-time test for HIV. Depending on your lifestyle and medical history, you may also need to be screened for infections such as syphilis and HIV, as well as other infections. PHYSICAL EXAM All adults should visit their provider from time to time, even if they are healthy. The purpose of these visits is to: Screen for disease Assess your risk of future medical problems Encourage a healthy lifestyle Update your vaccinations and other preventive care services Maintain a relationship with a provider in case of an illness Your height, weight, and BMI should be checked at every exam. During your exam, your provider may ask you about: Depression and anxiety Diet and exercise Alcohol and tobacco use Safety issues, such as using seat belts, smoke detectors, and intimate partner violence Your medicines and risk for interactions SKIN SELF-EXAM Your provider may check your skin for signs of skin cancer, especially if you're at high risk, such as if you: Have had skin cancer before Have close relatives with skin cancer Have a weakened immune system OTHER SCREENING Talk with your provider about colon cancer screening if you have a strong family history of colon cancer or polyps, or if you have had inflammatory bowel disease or polyps yourself. Routine bone density screening of women under 40 is not recommended.
[2025-05-04 10:09] VITALS: BP 138/78; PULSE 81; RESP 12; TEMP 36.3; O2SAT 98; BMI 33.5
== END 2025-05-04 10:46 | disposition home or self-care (01) ==
LOC: HO.HMCFM 09:51
PROVIDERS: PCP Nurse Practitioner Family; Visit Provider Nurse Practitioner Family
DX: Z00.00 Encounter for general adult medical examination without abnormal findings (principal); F41.1 Generalized anxiety disorder; F33.0 Major depressive disorder, recurrent, mild; J30.2 Other seasonal allergic rhinitis; R79.89 Other specified abnormal findings of blood chemistry; E66.811 Obesity, class 1; Z68.33 Body mass index [BMI] 33.0-33.9, adult; Z23 Encounter for immunization; Z86.59 Personal history of other mental and behavioral disorders

== ENCOUNTER 2025-05-04 09:50 | Outpatient (REF) | payer OTHER, SELFPAY ==
[2025-05-04 17:20] LABS: Alanine Aminotransferase 23 U/L (0-31); Albumin Level 4.6 g/dL (3.5-5.0); Alkaline Phosphatase 60 U/L (39-117); Anion Gap 12 (12-20); Aspartate Amino Transferase 27 U/L (5-31); Blood Urea Nitrogen 6 mg/dL (9-16); Calcium 9.5 mg/dL (8.4-10.2); Carbon Dioxide 24 mmol/L (22-29); Chloride 109 mmol/L (96-108); Estimated Glomerular Filt Rate > 60; Potassium 4.0 mmol/L (3.3-5.1); Sodium 141 mmol/L (135-145); Total Protein 7.7 g/dL (6.5-8.0)
[2025-05-05 00:31] LABS: Folate 11.4 ng/mL (> or = 4.0); Vitamin B12 191 pg/mL (200-900)
== END 2025-05-04 09:51 | disposition home or self-care (01) ==
LOC: HO.WFDLDS 09:50
PROVIDERS: PCP Nurse Practitioner Family; Visit Provider Nurse Practitioner Family
DX: F41.1 Generalized anxiety disorder (principal); Z23 Encounter for immunization; Z13.31 Encounter for screening for depression; Z13.39 Encounter for screening examination for other mental health and behavioral disorders; R79.89 Other specified abnormal findings of blood chemistry
CPT/HCPCS: 36415; 80053; 82248; 82607; 82746; 90471; 90656; 96127